=== PATIENT | male | born 1960 | race Caucasian/White ===

== ENCOUNTER 2017-12-28 09:01 | Emergency (ER) | payer SELFPAY ==
[~2017-12-28] VITALS: Ht 180.3 cm; Wt 95.0 kg
[~2017-12-28 09:01] MED LIST: AMLO10 PO; BACT800T5 PO; CLON.2 PO; DICL75 PO; FURO1TAB93 PO; PRIN20TA2 PO
[2017-12-28 09:06] VITALS: BP 160/89; PULSE 79; RESP 18; TEMP 98.4; O2SAT 94
[2017-12-28] MEDS ORDERED: DILT60TA PO (09:18)
[2017-12-28] MEDS ORDERED: HYDR-3801 PO (09:18)
[2017-12-28] MEDS ORDERED: ASPI81CH6 CHEW (09:18)
[2017-12-28] MEDS ORDERED: METF1000 PO (09:18)
[2017-12-28] MEDS ORDERED: LISI-515 PO (09:18)
[2017-12-28] MEDS ORDERED: HYDR25TA5 PO (09:18)
[2017-12-28] MEDS ORDERED: CARV25TA (09:18)
[2017-12-28] MEDS ORDERED: SIMV40TA PO (09:18)
[2017-12-28] MEDS ORDERED: LEVO50TA4 PO (09:18)
[2017-12-28] MEDS ORDERED: ALLO100T PO (09:18)
[2017-12-28] MEDS ORDERED: GLIP10TA6 PO (09:18)
[2017-12-28 09:26] VITALS: BP 157/76; PULSE 75; RESP 20; O2SAT 93
[2017-12-28 09:32] LABS: AUTOMATED NEUTROPHIL # 5.1 TH/MM3 (1.8-7.7); BASOPHIL % 0.6 % (0.0-2.0); EOSINOPHIL # 0.2 TH/MM3 (0-0.4); EOSINOPHIL % 3.3 % (0.0-4.0); HEMATOCRIT 41.3 % (39.0-51.0); HEMOGLOBIN 13.6 GM/DL (13.0-17.0); LYMPH % 17.5 % (9.0-44.0); LYMPHOCYTE # 1.2 TH/MM3 (1.0-4.8); MEAN CELL VOLUME 82.2 FL (80.0-100.0); MEAN CORPUSCULAR HGB CONC 32.8 % (32.0-36.0); MEAN PLATELET VOLUME 9.7 FL (7.0-11.0); MONO % 6.5 % (0.0-8.0); MONOCYTE # 0.4 TH/MM3 (0-0.9); NEUT % 72.1 % (16.0-70.0); PLATELET COUNT 154 TH/MM3 (150-450); RED BLOOD COUNT 5.02 MIL/MM3 (4.50-5.90); RED CELL DISTRIBUTION WIDTH 14.8 % (11.6-17.2); WHITE BLOOD COUNT 6.9 TH/MM3 (4.0-11.0)
--- NOTE | 2017-12-28 10:14 | RADRPT ---
EXAM DATE/TIME: 12/28/2017 09:45 [place] COMPARISON: No previous studies available for comparison. INDICATIONS : Short of breath MEDICAL HISTORY : Congestive heart failure. SURGICAL HISTORY : None. ENCOUNTER: Initial ACUITY: 1 week PAIN SCORE: 0/10 LOCATION: Bilateral chest FINDINGS: The heart size is enlarged. Cephalization of vasculature. Diffuse interstitial thickening concerning for congestive heart failure and pulmonary edema. Osseous structures are intact. CONCLUSION: Radiographic findings concerning for congestive heart failure and pulmonary edema.. Geneva Beard MD on December 28, 2017 at 10:11 Board Certified Radiologist. This report was verified electronically.
--- NOTE | 2017-12-28 10:18 | PD ---
HPI Chief Complaint: Respiratory Symptoms Time Seen by Provider: 10:09 Travel History International Travel<30 days: No Contact w/Intl Traveler<30days: No Traveled to known affect area: No History of Present Illness HPI 57-year-old male complains of shortness of breath. Patient states that he had progressive shortness of breath for the past week. Patient also complains of dyspnea on exertion. Patient denies any headache. Patient denies any chest pain. Patient denies any coughing congestion fever chills. Patient denies abdominal pain. Patient denies any focal weakness or numbness of extremity. Patient has history of CHF. Patient had echocardiogram done in 2008 which showed ejection fraction between 40 and 50%. Patient history been taking HCTZ 25 mg daily. Patient quit smoking many years ago. Patient denies any history of asthma or COPD. Patient has been taking Lasix 20 mg once in a while, as needed. Last Lasix was 3 days ago. Patient was on potassium in the past but not recently. PFSH Past Medical History Arthritis: No Asthma: No Blood Disorders: No Heart Rhythm Problems: No Cancer: No Cardiovascular Problems: Yes High Cholesterol: Yes Chest Pain: No Congestive Heart Failure: Yes COPD: No Cerebrovascular Accident: No Coronary Artery Disease: Yes Diabetes: Yes Patient Takes Glucophage: Yes Diminished Hearing: No Endocrine: No Gastrointestinal Disorders: Yes GERD: No Genitourinary: No Headaches: No Hepatitis: No Hiatal Hernia: No Hypertension: Yes Immune Disorder: No Kidney Stones: No Musculoskeletal: No Neurologic: No Psychiatric: No Reproductive: No Respiratory: Yes Immunizations Current: Yes Migraines: No Myocardial Infarction: No Renal Failure: No Seizures: No Thyroid Disease: Yes Ulcer: No Influenza Vaccination: No ?: Not Past Surgical History Abdominal Surgery: Yes (APPENDECTOMY) Appendectomy: Yes Arteriovenous Shunt: No Cardiac Surgery: No Cholecystectomy: No Ear Surgery: No Endocrine Surgery: No Eye Surgery: No Genitourinary Surgery: No Gynecologic Surgery: No Joint Replacement: No Oral Surgery: No Pacemaker: No Thoracic Surgery: No Other Surgery: Yes Social History Alcohol Use: No Tobacco Use: No Substance Use: No Allergies-Medications (Allergen,Severity, Reaction): Coded Allergies: *MDRO Multi-Drug Resistant Organism (Verified Adverse Reaction, Unknown, ) 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 Reported Meds & Prescriptions Reported Meds & Active Scripts Active Reported Furosemide 20 Mg Tab 20 Mg PO DAILY PRN Simvastatin 40 Mg Tab 40 Mg PO HS Aspirin Low Dose (Aspirin) 81 Mg Chew 81 Mg CHEW DAILY Glipizide 10 Mg Tab 10 Mg PO DAILY Take 30 minutes before a meal Allopurinol 100 Mg Tab 100 Mg PO DAILY Diltiazem (Diltiazem HCl) 60 Mg Tab 60 Mg PO DAILY Hydrochlorothiazide 25 Mg Tab 25 Mg PO DAILY Levothyroxine (Levothyroxine Sodium) 50 Mcg Tab 50 Mcg PO DAILY Lisinopril 20 Mg Tab 20 Mg PO DAILY Hydralazine (Hydralazine HCl) 100 Mg Tab 50 Mg PO BID Take with meals Carvedilol 25 Mg Tab 25 Mg BID Metformin (Metformin HCl) 1,000 Mg Tab 1,000 Mg PO BID With a meal Review of Systems General / Constitutional: No: Fever Eyes: No: Visual changes HENT: No: Headaches Cardiovascular: No: Chest Pain or Discomfort Respiratory: Positive: Shortness of Breath Gastrointestinal: No: Abdominal Pain Genitourinary: No: Dysuria Musculoskeletal: No: Pain Skin: No Rash Neurologic: No: Weakness Psychiatric: No: Depression Endocrine: No: Polydipsia Hematologic/Lymphatic: No: Easy Bruising Physical Exam Narrative GENERAL: Well-nourished, well-developed patient. SKIN: Focused skin assessment warm/dry. HEAD: Normocephalic. EYES: No scleral icterus. No injection or drainage. NECK: Supple, trachea midline. No JVD or lymphadenopathy. CARDIOVASCULAR: Regular rate and rhythm without murmurs, gallops, or rubs. RESPIRATORY: Breath sounds equal bilaterally. No accessory muscle use. Patient has few rhonchi at the right base. GASTROINTESTINAL: Abdomen soft, non-tender, nondistended. MUSCULOSKELETAL: No cyanosis, or edema. BACK: Nontender without obvious deformity. No CVA tenderness. Neurologic exam normal. Data Data Last Documented VS Vital Signs Date Time Temp Pulse Resp B/P (MAP) Pulse Ox O2 Delivery O2 Flow Rate FiO2 12/28/17 12:25 76 18 166/79 (108) 95 12/28/17 10:21 Room Air 12/28/17 09:06 98.4 Orders Orders Complete Blood Count With Diff (12/28/17 09:21) Basic Metabolic Panel (Bmp) (12/28/17 09:21) Chest, Pa & Lat (12/28/17 09:21) Iv Access Insert/Monitor (12/28/17 09:21) Ecg Monitoring (12/28/17:21) Oxygen Administration (12/28/17:21) Oximetry (12/28/17:21) Electrocardiogram (12/28/17:21) B-Type Natriuretic Peptide (12/28/17:21) I-Stat Profile (12/28/17 09:15) Potassium Chloride (Kcl) (12/28/17 11:00) Potassium Chlor 10 Meq Premix (Kcl 10 Me (12/28/17 11:00) Ed Discharge Order (12/28/17 12:23) Labs Laboratory Tests Test 12/28/17:15 White Blood Count 6.9 TH/MM3 Red Blood Count 5.02 MIL/MM3 Hemoglobin 13.6 GM/DL Bedside Hemoglobin G/DL Hematocrit 41.3 % Bedside Hematocrit % Mean Corpuscular Volume 82.2 FL Mean Corpuscular Hemoglobin 27.0 PG Mean Corpuscular Hemoglobin Concent 32.8 % Red Cell Distribution Width 14.8 % Platelet Count 154 TH/MM3 Mean Platelet Volume 9.7 FL Neutrophils (%) (Auto) 72.1 % Lymphocytes (%) (Auto) 17.5 % Monocytes (%) (Auto) 6.5 % Eosinophils (%) (Auto) 3.3 % Basophils (%) (Auto) 0.6 % Neutrophils # (Auto) 5.1 TH/MM3 Lymphocytes # (Auto) 1.2 TH/MM3 Monocytes # (Auto) 0.4 TH/MM3 Eosinophils # (Auto) 0.2 TH/MM3 Basophils # (Auto) 0.0 TH/MM3 CBC Comment DIFF FINAL Differential Comment Bedside Sodium 144 MMOL/L Blood Urea Nitrogen 18 MG/DL Creatinine 1.00 MG/DL Random Glucose 112 MG/DL Calcium Level 8.4 MG/DL Sodium Level 142 MEQ/L Potassium Level 3.2 MEQ/L Chloride Level 106 MEQ/L Carbon Dioxide Level 29.0 MEQ/L Bedside Potassium 3.2 MMOL/L Bedside Chloride 102 MMOL/L Anion Gap 7 MEQ/L Bedside Blood Urea Nitrogen 19 MG/DL Bedside Creatinine 1.0 MG/DL Estimat Glomerular Filtration Rate 77 ML/MIN Bedside Glucose 115 MG/DL B-Type Natriuretic Peptide 525 PG/ML MDM Medical Decision Making Medical Screen Exam Complete: Yes Emergency Medical Condition: Yes Interpretation(s) Last Impressions Chest X-Ray 12/28/17 0921 Signed Impressions: Service Date/Time: Thursday, December 28, 2017 09:45 - CONCLUSION: Radiographic findings concerning for congestive heart failure and pulmonary edema.. Geneva Beard MD 10:56 AM. CBC within normal limit. Potassium 3.2. BNP 525. Differential Diagnosis Differential diagnosis including acute exacerbation CHF, reactive airway disease , bronchitis, pneumonia, PE, pneumothorax. Narrative Course 57-year-old male with shortness of breath and dyspnea on exertion. History of CHF. KCl 10 mEq IV given now. KCl 40 was 100 given now. Advised patient to take Lasix 20 mg afternoon and continue that daily. Follow-up with local physician. Diagnosis Primary Impression: Acute exacerbation of CHF (congestive heart failure) Qualified Codes: I50.9 - Heart failure, unspecified Additional Impression: Hypokalemia Patient Instructions: General Instructions Additional Instructions: Take Lasix daily as directed. Potassium as directed. Follow-up with personal physician in one week for potassium level checked. Return if worse. Med/Other Pt SpecificInfo: Prescription(s) given Scripts Potassium Chloride ER (Potassium Chloride ER) 10 Meq Cap 10 MEQ PO DAILY for Electrolyte Replacement, #14 CAP 0 Refills Prov: Emeka Velez MD 12/28/17 Disposition: 01 DISCHARGE HOME Condition: Stable Emeka Velez MD Dec 28, 2017 10:18
[2017-12-28 10:19] LABS: CHLORIDE 106 MEQ/L (98-107); SODIUM (NA) 142 MEQ/L (136-145)
[2017-12-28 10:21] VITALS: BP 168/74; PULSE 76; RESP 18; O2SAT 95
[2017-12-28] MEDS ORDERED: FURO20TA PO (10:22)
[2017-12-28 10:23] LABS: CALCIUM 8.4 MG/DL (8.5-10.1)
[2017-12-28 10:24] LABS: BLOOD UREA NITROGEN 18 MG/DL (7-18); GLUCOSE,RANDOM 112 MG/DL (74-106)
[2017-12-28 10:27] LABS: GLOMERULAR FILTRATION RATE 77 ML/MIN (>89)
[2017-12-28] MEDS ORDERED: POTASSIUM CHLOR 10 MEQ PREMIX 100 ML IV ONE (11:00)
[2017-12-28] MEDS ORDERED: POTASSIUM CHLORIDE 20 MEQ CONTROLLED RELEASE TAB PO ONE (11:00)
[2017-12-28 12:25] VITALS: BP 166/79
[2017-12-28] MEDS ORDERED: POTA10CA PO (12:28)
--- NOTE | 2017-12-29 00:50 | EKG ---
Date Performed: 12/28/2017 Time Performed: 09:29:09 PTAGE: 57 years EKG: Sinus rhythm POSSIBLE LEFT ATRIAL ENLARGEMENT LEFT VENTRICULAR HYPERTROPHY AND ST-T CHANGE ST/T WAVE CHANGES MAY BE DUE TO LVH OR ISCHEMIA ABNORMAL ECG INTERPRETATION BASED ON A DEFAULT AGE OF 40 YEARS Since the pr ior tracing, there has been no significant change DOCTOR: Tim Harvey Interpretating Date/Time 12/29/2017 00:49:37
== END 2017-12-28 12:33 | disposition home or self-care (01) ==
LOC: PHED 09:01
DX: I50.9 Heart failure, unspecified (principal); E87.6 Hypokalemia; E78.00 Pure hypercholesterolemia, unspecified; I25.10 Atherosclerotic heart disease of native coronary artery without angina pectoris; E11.9 Type 2 diabetes mellitus without complications; I10 Essential (primary) hypertension
CPT/HCPCS: 71046; 80048; 83880; 85025; 93005; 96365; 99284; J3480

== ENCOUNTER 2018-07-25 08:00 | Inpatient (IN) ==
[2018-07-25] MEDS ORDERED: Morphine Sulfate Inj 2 MG/ML Vial IV.PUSH ONE (08:30)
[2018-07-25 08:56] LABS: Baso % (Auto) 0.6 % (0.0-2.0); Eos # (Auto) 0.2 th/mm3 (0.0-0.4); Eos % (Auto) 2.8 % (0.0-4.0); Hematocrit 39.6 % (39.0-51.0); Hemoglobin 13.2 gm/dL (13.0-17.0); Lymph # (Auto) 1.3 th/mm3 (1.0-4.8); Lymph % (Auto) 16.7 % (9.0-44.0); Mean Corpuscular HGB Conc 33.4 % (32.0-36.0); Mean Corpuscular Hemoglobin 29.2 pg (27.0-34.0); Mean Corpuscular Volume 87.4 fL (80.0-100.0); Mean Platelet Volume 9.2 fL (7.0-11.0); Mono # (Auto) 0.4 th/mm3 (0.0-0.9); Mono % (Auto) 5.3 % (0.0-8.0); Neut # (Auto) 5.8 th/mm3 (1.8-7.7); Neut % (Auto) 74.6 % (16.0-70.0); Platelet Count 248 th/mm3 (150-450); Red Blood Count 4.53 mil/mm3 (4.50-5.90); Red Cell Distribution Width 12.4 % (11.6-17.2); White Blood Count 7.8 th/mm3 (4.0-11.0)
--- NOTE | 2018-07-25 09:03 | ED ---
HPI General Chief complaint: Extremity Injury, Lower Stated complaint: Lt lower extremity/red/swollen Source: patient Mode of arrival: ambulatory Limitations: no limitations History of Present Illness HPI narrative: Patient is a 57-year-old male comes in complaining of pain and swelling to his left leg. He was here about 10 days ago and was diagnosed with cellulitis. He was discharged with prescription for clindamycin. He says he is just about finished with the antibiotic, but his symptoms have not improved. He says the swelling has increased, and he thinks it needs to be drained. He denies fever chills. He is on Coumadin. He does have history of diabetes. He has not been taking anything for pain. Severity is mild to moderate. Related Data Home Medications Medication Instructions Recorded Confirmed allopurinol [Zyloprim] 100 mg PO DAILY 05/29/18 07/25/18 carvedilol [Coreg] 25 mg PO BID 05/29/18 07/25/18 glipizide 10 mg PO DAILY 05/29/18 07/25/18 hydralazine 50 mg PO DAILY 05/29/18 07/25/18 levothyroxine [Synthroid] 75 mcg PO DAILY 05/29/18 07/25/18 metformin 1,000 mg PO DAILY 05/29/18 07/25/18 simvastatin 40 mg PO HS 05/29/18 07/25/18 warfarin 5 mg PO DAILY 07/13/18 07/25/18 Previous Rx's Medication Instructions Recorded lactobacillus combo no.11 1 cap PO DAILY #10 cap 07/13/18 [Probiotic] Allergies Allergy/AdvReac Type Severity Reaction Status Date / Time acetaminophen Allergy Hives Verified 07/25/18 08:11 [From Coricidin] chlorpheniramine Allergy Hives Verified 07/25/18 08:11 [From Coricidin] phenylpropanolamine Allergy Hives Verified 07/25/18 08:11 [From Coricidin] *MDRO Multi-Drug Resistant AdvReac Unknown Rash, Uncoded 07/25/18 08:11 Organism Generalized Review of Systems ROS: all other systems reviewed are negative Constitutional Denies chills and Denies fever(s) ENT Denies dizziness Cardiovascular Denies chest pain Respiratory Denies dyspnea Gastrointestinal Denies nausea and Denies vomiting Musculoskeletal Comments: leg pain Integumentary/Breasts Reports lesions and Reports sores Neurologic Denies focal weakness and Denies numbness PMFSH History History Provided By: Patient Medical History Medical History Atrial fibrillation (Acute) CHF (congestive heart failure) (Acute) Chest pain (Acute) Diabetes (Acute) GERD (gastroesophageal reflux disease) (Acute) High cholesterol (Acute) Hypertension (Acute) Social History Social History Substance History: No History of Abuse Second Hand Smoke Exposure: No Smoking Status: Never smoker How Often Do You Have a Drink Containing Alcohol: Never Recent Travel in [facility] within the Last 8 Weeks: No Recent Out of Country Travel within the Last 8 Weeks: No Exam Narrative Exam Narrative: GENERAL: Awake and alert, in no acute distress. SKIN: Left lower extremity is erythematous and warm to the touch. There is ecchymosis of the toes. Large area of fluctuance to the lateral side of the left lower extremity. HEAD: Atraumatic. Normocephalic. EYES: Pupils equal and round. No scleral icterus. No injection or drainage. ENT: Mucous membranes pink and moist. NECK: Trachea midline. No JVD. CARDIOVASCULAR: Regular rate and rhythm. No murmur appreciated. RESPIRATORY: No accessory muscle use. Clear to auscultation. Breath sounds equal bilaterally. GASTROINTESTINAL: Abdomen soft, non-tender, nondistended. MUSCULOSKELETAL: No obvious deformities. No clubbing. No cyanosis. Edema of the left lower extremity. Pedal pulses intact. NEUROLOGICAL: Awake and alert. No obvious cranial nerve deficits. Motor grossly within normal limits. Normal speech. PSYCHIATRIC: Appropriate mood and affect; insight and judgment normal. Course Initial Documented Vital Signs Temperature 97.8 F 07/25/18 08:09 Pulse Rate 75 07/25/18 08:09 Respiratory Rate 16 07/25/18 08:09 Blood Pressure 155/84 H 07/25/18 08:09 Pulse Oximetry 95 07/25/18 08:09 Last Documented Vital Signs Temperature 97.8 F 07/25/18 08:09 Pulse Rate 80 07/25/18 10:20 Respiratory Rate 16 07/25/18 10:20 Blood Pressure 108/72 07/25/18 10:20 Pulse Oximetry 97 07/25/18 10:20 Medical Decision Making MDM Narrative Medical decision making narrative: Is a 57-year-old male who comes in complaining of pain and swelling to his left leg. Exam shows large area of erythema and fluctuance. IV established, labs sent. Labs show no acute abnormalities. CT of the leg performed shows a large abscess that goes deep into the muscle. Patient given vancomycin. He will require surgical drainage of the abscess. Admitted for further management. Medical Screen Exam Complete: Yes Emergency Medical Condition: Yes Differential Diagnosis Differential Diagnosis: Cellulitis versus abscess versus hematoma Medical Records Medical records reviewed: Yes I reviewed the patient's medical records. Lab Data Lab results reviewed: Yes I reviewed the patient's lab results. Result diagrams: 07/25/18 08:48 07/25/18 08:48 Lab Results 07/25/18 07/25/18 07/25/18 Range/Units 08:48 08:48 08:48 CBC w Diff Auto diff final WBC 7.8 (4.0-11.0) th/mm3 RBC 4.53 (4.50-5.90) mil/mm3 Hgb 13.2 (13.0-17.0) gm/dL Hct 39.6 (39.0-51.0) % MCV 87.4 (80.0-100.0) fL MCH 29.2 (27.0-34.0) pg MCHC 33.4 (32.0-36.0) % RDW 12.4 (11.6-17.2) % Plt Count 248 D (150-450) th/mm3 MPV 9.2 (7.0-11.0) fL Neut % (Auto) 74.6 H (16.0-70.0) % Lymph % (Auto) 16.7 (9.0-44.0) % [place] % (Auto) 5.3 (0.0-8.0) % Eos % (Auto) 2.8 (0.0-4.0) % Baso % (Auto) 0.6 (0.0-2.0) % Neut # (Auto) 5.8 (1.8-7.7) th/mm3 Lymph # (Auto) 1.3 (1.0-4.8) th/mm3 [place] # (Auto) 0.4 (0.0-0.9) th/mm3 Eos # (Auto) 0.2 (0.0-0.4) th/mm3 Baso # (Auto) 0.0 (0.0-0.2) th/mm3 WBC Differential . Differential Comment . PT 20.9 H (9.8-11.6) sec INR 2.1 Ratio APTT 35.7 H (24.3-30.1) sec Sodium 141 (136-145) meq/L Potassium 3.4 L (3.5-5.1) meq/L Chloride 102 (98-107) meq/L Carbon Dioxide 29.9 (21.0-32.0) meq/L Anion Gap 9 (5-15) meq/L BUN 28 H (7-18) mg/dL Creatinine 1.60 H (0.60-1.30) mg/dL Estimated GFR 45 L (>89) mL/min Random Glucose 106 (74-106) mg/dL Calcium 8.6 (8.5-10.1) mg/dL Total Bilirubin 0.4 (0.2-1.0) mg/dL AST 20 (15-37) U/L ALT 33 (12-78) U/L Alkaline Phosphatase 80 (45-117) U/L Total Protein 8.0 (6.4-8.2) g/dL Albumin 3.7 (3.4-5.0) g/dL Imaging Data Radiologist's impression: Lower Extremity CT 07/25/18 08:30 CONCLUSION: 1. Soft tissue fluid collection presumed abscess with some deep involvement lateral side of the leg just above the ankle. 2. Ultrasound could be used to aspirate. Discharge Plan Discharge Disposition Patient Disposition: 30 Still Patient Discharge Condition Condition: Stable Discharge Details Diagnosis: Cellulitis and abscess of left lower extremity Physicians Team ED Provider: Catalina Yanes Primary Care Provider: Noah Mercado Rxs /Orders / Referrals /Forms Prescriptions: No Action warfarin 5 mg Tablet 5 mg PO DAILY RF: 0 lactobacillus combo no.11 [Probiotic] 15 billion cell capsule, sprinkle 1 cap PO DAILY Qty: 10 RF: 0 carvedilol [Coreg] 25 mg Tablet 25 mg PO BID RF: 0 glipizide 10 mg Tablet 10 mg PO DAILY RF: 0 allopurinol [Zyloprim] 100 mg Tablet 100 mg PO DAILY RF: 0 simvastatin 40 mg Tablet 40 mg PO HS RF: 0 levothyroxine [Synthroid] 50 mcg Tablet 75 mcg PO DAILY RF: 0 metformin 1,000 mg Tablet 1,000 mg PO DAILY RF: 0 hydralazine 50 mg Tablet 50 mg PO DAILY RF: 0 Discharge Interventions Interventions: Vital Signs Last Done: 07/25/18 10:20 Status ED Status: In Room
[2018-07-25 09:08] LABS: Chloride 102 meq/L (98-107); Potassium 3.4 meq/L (3.5-5.1); Sodium 141 meq/L (136-145)
[2018-07-25 09:11] LABS: Albumin 3.7 g/dL (3.4-5.0); Anion Gap 9 meq/L (5-15); Calcium 8.6 mg/dL (8.5-10.1); Carbon Dioxide 29.9 meq/L (21.0-32.0); Glucose,Random 106 mg/dL (74-106)
[2018-07-25 09:12] LABS: Activated Partial Thrombo Time 35.7 sec (24.3-30.1); Blood Urea Nitrogen 28 mg/dL (7-18); INR 2.1 Ratio; Prothrombin Time 20.9 sec (9.8-11.6)
[2018-07-25 09:14] LABS: Alanine Aminotransferase 33 U/L (12-78); Aspartate Aminotransferase 20 U/L (15-37)
[2018-07-25 09:15] LABS: Glomerular Filtration Rate 45 mL/min (>89)
[2018-07-25 09:17] LABS: Alkaline Phosphatase 80 U/L (45-117)
--- NOTE | 2018-07-25 10:52 | CT ---
EXAM DATE: 07/25/2018 10:08 AM EDT AGE/SEX: 57 years / Male INDICATIONS: Left lateral distal low leg pain with swelling and redness x 2 weeks. CLINICAL DATA: This is the patient's initial encounter. Patient reports that signs and symptoms have been present for 2 weeks and indicates a pain score of 7/10. MEDICAL/SURGICAL HISTORY: Renal failure, acute. Congestive heart failure. Gastroesophageal reflux disease. Cellulitis. Diabetes. Hypertension. Appendectomy. RADIATION DOSE: 9.8 CTDI (mGy) COMPARISON: No prior exams available for comparison. TECHNIQUE: Multiple contiguous axial images were acquired using a multirow detector CT scanner after the intravenous administration of 65 ml Omnipaque 350 (iohexol) nonionic water-soluble contrast as a single exam dose. Multiplanar reconstruction was performed in the sagittal and coronal planes. Usin g automated exposure control and adjustment of the mA and/or kV according to patient size, radiation dose was kept as low as reasonably achievable to obtain optimal diagnostic quality images. DICOM for mat image data is available electronically for review and comparison. FINDINGS: Generalized soft tissue swelling subcutis tissues with a defined fluid collection involving subcutane ous tissues as well as the deep muscles lateral side of the leg measuring 3.8 cm x 7 cm. Regarding this process is subcutaneous. This is far removed from a major neurovascular structures. This can easily be aspirated under ultrasound guidance. CONCLUSION: 1. Soft tissue fluid collection presumed abscess with some deep involvement lateral side of the leg just above the ankle. 2. Ultrasound could be used to aspirate. Electronically signed by: Marlon Cantu MD 07/25/2018 10:50 AM EDT
[2018-07-25] MEDS ORDERED: Vancomycin Inj 1 GM/200 ML PIGGYBACK IV.SIG ONE (10:58)
[2018-07-25] MEDS ORDERED: Dextrose 50% in Water 50 ML Vial IV.PUSH PRN (11:16)
[2018-07-25] MEDS: Sod Chloride 0.9% Inj 1,000 ML IV.CONT SCH ×2 (11:23→22:20)
[2018-07-25] MEDS ORDERED: Vancomycin Inj 1,000 MG in Sodium Chlor 0.9% Inj 250 ML IV.SIG ONE (12:00)
[2018-07-25] MEDS ORDERED: Vancomycin Consult Pharmacy OTHER PRN (13:00)
--- NOTE | 2018-07-25 13:08 | P.HPIM ---
History of Present Illness Primary Care Physician: Noah Mercado MD Chief Complaint: Leg pain History of Present Illness: The patient is a 57 year old male with a recent diagnosis of A fib on Coumadin who is presenting to the hospital with a worsening leg infection. The patient says that two weeks ago he came to the ED for swelling and pain in his left leg. 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 The patient was prescribed clindamycin and sent home. He said that gradually the pain in the LLE went from a 9/10 to a 5/10. He was still concerned about the amount of swelling so he thought he would come to the ED and have it checked out again. The patient denies any fever. He has been tolerating a diet. He has been sleeping well. He is able to bear weight on the LLE. He denies seeing any drainage from the extremity. Inpatient Certification: I certify that the inpatient services were ordered in accordance with Medicare regulations governing the order. This includes certification that hospital inpatient services are reasonable and necessary and in the case of services not specified as inpatient-only under 42 CFR 419.22(n), that they are appropriately provided as inpatient services in accordance to with the 2-midnight benchmark under 43 CFR 412.3(e) Estimated Total Length of Stay (Days): 3 Plans for Post Hospital Care: Not yet determined Review of Systems All other systems reviewed negative except as stated in HPI PMFSH - History History Provided By: Patient - Medical History Medical History: Medical History (Last Reviewed 07/25/18 @ 13:09 by Tommy Forde DO) Atrial fibrillation CHF (congestive heart failure) Chest pain Diabetes GERD (gastroesophageal reflux disease) High cholesterol Hypertension - Surgical History Surgical History: Surgical History (Last Updated 07/25/18 @ 13:09 by Tommy Forde DO) History of appendectomy - Family History Family History: Family History (Last Updated 07/25/18 @ 13:09 by Tommy Forde DO) Other Breast cancer Lymphoma - Tobacco History Second Hand Smoke Exposure: No Smoking Status: Never smoker - Alcohol History How Often Do You Have a Drink Containing Alcohol: Never - Substance Use History Substance History: No History of Abuse - Travel History Recent Travel in the [place] Within the Last 8 Weeks: No Recent Travel Out of the Country Within the Last 8 Weeks: No - Immunization History Tetanus Immunization: <5 Years Hx Influenza Vaccine This Season: No Medications and Allergies Active Medications: Active Medications Allopurinol (Zyloprim) 100 mg PO DAILY [facility] Carvedilol (Coreg) 25 mg PO BID [facility] Dextrose (D50w Vial) 50 ml IV.PUSH UNSCH PRN PRN Reason: PER HYPOGLYCEMIA PROTOCOL Glucagon (Glucagon Inj) 1 mg OTHER PRN PRN PRN Reason: for Hypoglycemia Protocol Hydralazine HCl (Apresoline) 50 mg PO DAILY [facility] Piperacillin/Tazobactam/Dextrose (Zosyn 4.5 Gm Premix) 4.5 gm in 100 mls @ 200 mls/hr IV.SIG Q6H [facility] Sodium Chloride (Ns Inj) 1,000 mls @ 100 mls/hr IV.CONT .Q10H [facility] Stop: 07/26/18 07:29 Last Admin: 07/25/18 11:23 Dose: 100 mls/hr Vancomycin HCl 1,500 mg/ (Sodium Chloride) 515 mls @ 250 mls/hr IV.SIG Q24H [facility] Insulin Aspart (Novolog Insulin Correctional Sugar Inj) 0 unit SQ ACHS [facility]; Protocol Levothyroxine Sodium (Synthroid) 75 mcg PO DAILY@0600 [facility] Miscellaneous Information ([facility] Ordered Lab Info) 0 each OTHER ONCE ONE Stop: 07/29/18 05:46 Oxycodone HCl (Roxicodone) 5 mg PO Q4H PRN PRN Reason: pain 3-10 Pharmacy Profile Note (Vancomycin Consult Pharmacy) 1 each OTHER UNSCH PRN PRN Reason: Pharmacy to dose Pravastatin Sodium (Pravachol) 80 mg PO HS [facility] Senna/Docusate Sodium (Farheen-Colace) 1 tab PO BID [facility] Allergies Allergy/AdvReac Type Severity Reaction Status Date / Time acetaminophen Allergy Hives Verified 07/25/18 08:11 [From Coricidin] chlorpheniramine Allergy Hives Verified 07/25/18 08:11 [From Coricidin] phenylpropanolamine Allergy Hives Verified 07/25/18 08:11 [From Coricidin] *MDRO Multi-Drug Resistant AdvReac Unknown Rash, Uncoded 07/25/18 08:11 Organism Generalized Home Medications Medication Instructions Recorded Confirmed Type allopurinol [Zyloprim] 100 mg PO DAILY 05/29/18 07/25/18 History carvedilol [Coreg] 25 mg PO BID 05/29/18 07/25/18 History glipizide 10 mg PO DAILY 05/29/18 07/25/18 History hydralazine 50 mg PO DAILY 05/29/18 07/25/18 History levothyroxine [Synthroid] 75 mcg PO DAILY 05/29/18 07/25/18 History metformin 1,000 mg PO DAILY 05/29/18 07/25/18 History simvastatin 40 mg PO HS 05/29/18 07/25/18 History warfarin 5 mg PO DAILY 07/13/18 07/25/18 History Exam Vital signs: Vital Signs 07/25/18 08:09 07/25/18 09:05 07/25/18 09:24 Temperature 97.8 F Pulse Rate 75 74 Respiratory Rate 16 16 16 Blood Pressure 155/84 H 119/74 Pulse Oximetry 95 97 07/25/18 10:20 07/25/18 11:45 Temperature Pulse Rate 80 78 Respiratory Rate 16 16 Blood Pressure 108/72 138/83 Pulse Oximetry 97 96 Intake & Output 07/24/18 07/25/18 07/25/18 18:59 06:59 18:59 Output Total 900 / 900 Balance -900 / -900 Weight 93.3 kg Output: Urine 900 / 900 Narrative: GENERAL: Awake and alert, in no acute distress. SKIN: Left lower extremity is erythematous and warm to the touch. There is ecchymosis of the toes. Large area of fluctuance to the lateral side of the left lower extremity. HEAD: Atraumatic. Normocephalic. EYES: Pupils equal and round. No scleral icterus. No injection or drainage. ENT: Mucous membranes pink and moist. NECK: Trachea midline. No JVD. CARDIOVASCULAR: Regular rate and rhythm. No murmur appreciated. RESPIRATORY: No accessory muscle use. Clear to auscultation. Breath sounds equal bilaterally. GASTROINTESTINAL: Abdomen soft, non-tender, nondistended. MUSCULOSKELETAL: No clubbing. No cyanosis. Edema of the left lower extremity. Pedal pulses intact. NEUROLOGICAL: Awake and alert. No obvious cranial nerve deficits. Motor grossly within normal limits. Normal speech. PSYCHIATRIC: Appropriate mood and affect; insight and judgment normal. Results - Labs CBC & Chem 7: 07/25/18 08:48 07/25/18 08:48 Labs: Short CBC 09/07/18 Range/Units 08:48 WBC 7.8 (4.0-11.0) th/mm3 Hgb 13.2 (13.0-17.0) gm/dL Hct 39.6 (39.0-51.0) % Plt Count 248 D (150-450) th/mm3 BMP 07/25/18 08:48 Sodium 141 Potassium 3.4 L Chloride 102 Carbon Dioxide 29.9 BUN 28 H Creatinine 1.60 H Calcium 8.6 Liver Function 07/25/18 Range/Units 08:48 Total Bilirubin 0.4 (0.2-1.0) mg/dL AST 20 (15-37) U/L ALT 33 (12-78) U/L Alkaline Phosphatase 80 (45-117) U/L Albumin 3.7 (3.4-5.0) g/dL - Imaging Impressions Lower Extremity CT 07/25/18 08:30 CONCLUSION: 1. Soft tissue fluid collection presumed abscess with some deep involvement lateral side of the leg just above the ankle. 2. Ultrasound could be used to aspirate. Caprini VTE Risk Assessment Caprini VTE Risk Assessment: Moderate/High Risk (score >= 2) Caprini Risk Assessment Model: Point Value = 1 Point Value = 2 Point Value = 3 Point Value = 5 Age 41-60 Minor surgery BMI > 25 kg/m2 Swollen legs Varicose veins or History of unexplained or recurrent spontaneous Oral contraceptives or hormone replacement Sepsis (< 1 month) Serious lung disease, including pneumonia (< 1 month) Abnormal pulmonary function Acute myocardial infarction Congestive heart failure (< 1 month) History of inflammatory bowel disease Medical patient at bed rest Age 61-74 Arthroscopic surgery Major open surgery (> 45 min) Laparoscopic surgery (> 45 min) Malignancy Confined to bed (> 72 hours) Immobilizing plaster cast Central venous access Age >= 75 History of VTE Family history of VTE Factor V Leiden Prothrombin [id number] Lupus anticoagulant Anticardiolipin antibodies Elevated serum homocysteine Heparin-induced thrombocytopenia Other congenital or acquired thrombophilia Stroke (< 1 month) Elective arthroplasty Hip, pelvis, or leg fracture Acute spinal cord injury (< 1 month) Prophylaxis Regimen: Total Risk Factor Score Risk Level Prophylaxis Regimen 0-1 Low Early ambulation 2 Moderate Order ONE of the following: *Sequential Compression Device (SCD) *Heparin 5000 units SQ BID 3-4 Higher Order ONE of the following medications: *Heparin 5000 units SQ TID *Enoxaparin/Lovenox 40 mg SQ daily (WT < 150 kg, CrCl > 30 mL/min) *Enoxaparin/Lovenox 30 mg SQ daily (WT < 150 kg, CrCl > 10-29 mL/min) *Enoxaparin/Lovenox 30 mg SQ BID (WT < 150 kg, CrCl > 30 mL/min) AND/OR *Sequential Compression Device (SCD) 5 or more Highest Order ONE of the following medications: *Heparin 5000 units SQ TID (Preferred with Epidurals) *Enoxaparin/Lovenox 40 mg SQ daily (WT < 150 kg, CrCl > 30 mL/min) *Enoxaparin/Lovenox 30 mg SQ daily (WT < 150 kg, CrCl > 10-29 mL/min) *Enoxaparin/Lovenox 30 mg SQ BID (WT < 150 kg, CrCl > 30 mL/min) AND *Sequential Compression Device (SCD) Assessment and Plan - Plan Left lower extremity abscess The pt injured his LLE about two weeks ago. He failed a course of clindamycin. CT indicative of abscess. -general surgery consult requested. -keep pt NPO with IVFs. -pain control with a bowel regimen. -IV vancomycin and Zosyn. Acute renal failure/ Hypokalemia Likely prerenal. -IVFs and monitor. -avoid nephrotoxins. -KCl 20 meq po x 1. Afib Recently diagnosed. On Coumadin. INR 2.1 07/25. -hold Coumadin in anticipation of possible I&D. DM Chronic. -insulin sliding scale. PPx: INR over 2
--- NOTE | 2018-07-25 13:08 | P.PNIM ---
Subjective Interval history: The patient is a 57 year old male with a recent diagnosis of A fib on Coumadin who is presenting to the hospital with a worsening leg infection. The patient says that two weeks ago he came to the ED for swelling and pain in his left leg. 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 The patient was prescribed clindamycin and sent home. He said that gradually the pain in the LLE went from a 9/10 to a 5/10. He was still concerned about the amount of swelling so he thought he would come to the ED and have it checked out again. The patient denies any fever. He has been tolerating a diet. He has been sleeping well. He is able to bear weight on the LLE. He denies seeing any drainage from the extremity. Physical Exam Vital signs: Vital Signs 07/25/18 08:09 07/25/18 09:05 07/25/18 09:24 Temperature 97.8 F Pulse Rate 75 74 Respiratory Rate 16 16 16 Blood Pressure 155/84 H 119/74 Pulse Oximetry 95 97 07/25/18 10:20 07/25/18 11:45 Temperature Pulse Rate 80 78 Respiratory Rate 16 16 Blood Pressure 108/72 138/83 Pulse Oximetry 97 96 Intake & Output 07/24/18 07/25/18 07/25/18 18:59 06:59 18:59 Output Total 900 / 900 Balance -900 / -900 Weight 93.3 kg Output: Urine 900 / 900 Narrative: GENERAL: Awake and alert, in no acute distress. SKIN: Left lower extremity is erythematous and warm to the touch. There is ecchymosis of the toes. Large area of fluctuance to the lateral side of the left lower extremity. HEAD: Atraumatic. Normocephalic. EYES: Pupils equal and round. No scleral icterus. No injection or drainage. ENT: Mucous membranes pink and moist. NECK: Trachea midline. No JVD. CARDIOVASCULAR: Regular rate and rhythm. No murmur appreciated. RESPIRATORY: No accessory muscle use. Clear to auscultation. Breath sounds equal bilaterally. GASTROINTESTINAL: Abdomen soft, non-tender, nondistended. MUSCULOSKELETAL: No clubbing. No cyanosis. Edema of the left lower extremity. Pedal pulses intact. NEUROLOGICAL: Awake and alert. No obvious cranial nerve deficits. Motor grossly within normal limits. Normal speech. PSYCHIATRIC: Appropriate mood and affect; insight and judgment normal. Results - Labs CBC & Chem 7: 07/25/18 08:48 07/25/18 08:48 Laboratory Results - last 24 hr 07/25/18 07/25/18 07/25/18 08:48 08:48 08:48 CBC w Diff Auto diff final WBC 7.8 RBC 4.53 Hgb 13.2 Hct 39.6 MCV 87.4 MCH 29.2 MCHC 33.4 RDW 12.4 Plt Count 248 D MPV 9.2 Neut % (Auto) 74.6 H Lymph % (Auto) 16.7 [place] % (Auto) 5.3 Eos % (Auto) 2.8 Baso % (Auto) 0.6 Neut # (Auto) 5.8 Lymph # (Auto) 1.3 [place] # (Auto) 0.4 Eos # (Auto) 0.2 Baso # (Auto) 0.0 WBC Differential . Differential Comment . PT 20.9 H INR 2.1 APTT 35.7 H Sodium 141 Potassium 3.4 L Chloride 102 Carbon Dioxide 29.9 Anion Gap 9 BUN 28 H Creatinine 1.60 H Estimated GFR 45 L Random Glucose 106 Calcium 8.6 Total Bilirubin 0.4 AST 20 ALT 33 Alkaline Phosphatase 80 Total Protein 8.0 Albumin 3.7 - Imaging Impressions Lower Extremity CT 07/25/18 08:30 CONCLUSION: 1. Soft tissue fluid collection presumed abscess with some deep involvement lateral side of the leg just above the ankle. 2. Ultrasound could be used to aspirate. Assessment and Plan - Plan Left lower extremity abscess The pt injured his LLE about two weeks ago. He failed a course of clindamycin. CT indicative of abscess. -general surgery consult requested. -keep pt NPO with IVFs. -pain control with a bowel regimen. -IV vancomycin and Zosyn. DM Chronic. -insulin sliding scale. PPx: Avoid anticoagulation in anticipation of I&D
[2018-07-25] MEDS: Piperacil/Tazo 4.5 GM Premix 4.5 GM/100 ML BAG IV.SIG SCH ×2 (16:22→17:24)
[2018-07-25] MEDS: Insulin NovoLOG Aspart Correctional Sugar Inj SQ SCH ×3 (16:22→22:06)
[2018-07-25] MEDS: Senna/Docusate Sodium 8.6/50 MG Tablet PO SCH (22:15)
[2018-07-25] MEDS: Carvedilol 12.5 MG Tablet PO SCH (22:15)
[2018-07-26] MEDS: Piperacil/Tazo 4.5 GM Premix 4.5 GM/100 ML BAG IV.SIG SCH ×5 (00:05→17:02)
[2018-07-26] MEDS: Vancomycin Inj 1,500 MG in Sodium Chlor 0.9% Inj 500 ML IV.SIG SCH (05:40)
[2018-07-26] MEDS: Levothyroxine 50 MCG Tablet PO SCH (05:40)
[2018-07-26] MEDS: Carvedilol 12.5 MG Tablet PO SCH ×2 (08:08→20:50)
[2018-07-26] MEDS: Insulin NovoLOG Aspart Correctional Sugar Inj SQ SCH ×4 (08:08→22:09)
[2018-07-26] MEDS: Allopurinol 100 MG Tablet PO SCH (08:09)
[2018-07-26] MEDS: hydrALAZINE 50 MG Tablet PO SCH (08:09)
[2018-07-26] MEDS: Senna/Docusate Sodium 8.6/50 MG Tablet PO SCH ×2 (08:09→20:51)
[2018-07-26] MEDS ORDERED: fentaNYL Citrate Inj 100 MCG/2 ML Ampul ONE (08:28)
[2018-07-26 08:52] LABS: Baso % (Auto) 0.5 % (0.0-2.0); Eos # (Auto) 0.2 th/mm3 (0.0-0.4); Eos % (Auto) 3.3 % (0.0-4.0); Hematocrit 37.7 % (39.0-51.0); Hemoglobin 12.4 gm/dL (13.0-17.0); Lymph # (Auto) 1.3 th/mm3 (1.0-4.8); Lymph % (Auto) 16.9 % (9.0-44.0); Mean Corpuscular Hemoglobin 29.3 pg (27.0-34.0); Mean Platelet Volume 9.5 fL (7.0-11.0); Mono # (Auto) 0.5 th/mm3 (0.0-0.9); Mono % (Auto) 7.3 % (0.0-8.0); Neut # (Auto) 5.4 th/mm3 (1.8-7.7); Platelet Count 198 th/mm3 (150-450); Red Blood Count 4.23 mil/mm3 (4.50-5.90); Red Cell Distribution Width 12.3 % (11.6-17.2); White Blood Count 7.4 th/mm3 (4.0-11.0)
[2018-07-26] MEDS ORDERED: Bupivacaine PF 0.25% Inj 30 ML Vial ONE (08:53)
[2018-07-26 09:11] LABS: Chloride 107 meq/L (98-107); Potassium 3.5 meq/L (3.5-5.1); Sodium 145 meq/L (136-145)
[2018-07-26 09:15] LABS: Calcium 8.4 mg/dL (8.5-10.1)
[2018-07-26 09:16] LABS: Albumin 3.4 g/dL (3.4-5.0); Anion Gap 7 meq/L (5-15); Blood Urea Nitrogen 20 mg/dL (7-18); Carbon Dioxide 30.8 meq/L (21.0-32.0); Glucose,Random 107 mg/dL (74-106)
[2018-07-26 09:19] LABS: Alanine Aminotransferase 29 U/L (12-78); Aspartate Aminotransferase 17 U/L (15-37); Glomerular Filtration Rate 52 mL/min (>89)
[2018-07-26 09:21] LABS: Total Protein 7.2 g/dL (6.4-8.2)
[2018-07-26 09:22] LABS: Alkaline Phosphatase 71 U/L (45-117)
[2018-07-26 09:31] LABS: Prothrombin Time 20.6 sec (9.8-11.6)
[2018-07-26] MEDS ORDERED: Ketorolac Inj 30 MG/ML (IVP) Vial IV.PUSH ONE (09:57)
[2018-07-26] MEDS ORDERED: Lidocaine PF 1% Inj 5 ML Syringe INFILTRATN ONE (09:57)
[2018-07-26] MEDS ORDERED: Neomycin/Polymyxin G.U. Irrigant 1 ML Ampul ONE (10:04)
--- NOTE | 2018-07-26 10:05 | P.CONPOD ---
History of Present Illness Service: Podiatry Consult date: 07/26/18 Primary Care Provider: Noah Mercado MD Family Provider: Noah Mercado MD Chief Complaint: Leg pain History of Present Illness: Patient relates two week history of worsening pain, redness, swelling left lower leg. 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 He understands what it is and what needs to be done. Review of Systems All other systems reviewed negative except as stated in HPI PMFSH - History History Provided By: Patient - Medical History Medical History: Medical History (Last Reviewed 07/25/18 @ 13:09 by Tommy Forde DO) Atrial fibrillation CHF (congestive heart failure) Chest pain Diabetes GERD (gastroesophageal reflux disease) High cholesterol Hypertension - Surgical History Surgical History: Surgical History (Last Updated 07/25/18 @ 13:09 by Tommy Forde DO) History of appendectomy - Family History Family History: Family History (Last Updated 07/25/18 @ 13:09 by Tommy Forde DO) Other Breast cancer Lymphoma - Tobacco History Second Hand Smoke Exposure: No Smoking Status: Never smoker - Alcohol History How Often Do You Have a Drink Containing Alcohol: Never - Substance Use History Substance History: No History of Abuse - Travel History Recent Travel in the [place] Within the Last 8 Weeks: No Recent Travel Out of the Country Within the Last 8 Weeks: No - Immunization History Tetanus Immunization: Unable to Assess Hx Influenza Vaccine This Season: Yes Medications and Allergies Active Medications: Active Medications Allopurinol (Zyloprim) 100 mg PO DAILY [facility] Last Admin: 07/26/18 08:09 Dose: 100 mg Carvedilol (Coreg) 25 mg PO BID [facility] Last Admin: 07/26/18 08:08 Dose: 25 mg Dextrose (D50w Vial) 50 ml IV.PUSH UNSCH PRN PRN Reason: PER HYPOGLYCEMIA PROTOCOL Glucagon (Glucagon Inj) 1 mg OTHER PRN PRN PRN Reason: for Hypoglycemia Protocol Hydralazine HCl (Apresoline) 50 mg PO DAILY [facility] Last Admin: 07/26/18 08:09 Dose: 50 mg Piperacillin/Tazobactam/Dextrose (Zosyn 4.5 Gm Premix) 4.5 gm in 100 mls @ 200 mls/hr IV.SIG Q6H [facility] Last Infusion: 07/26/18 08:07 Dose: Infused Vancomycin HCl 1,500 mg/ (Sodium Chloride) 515 mls @ 250 mls/hr IV.SIG Q24H [facility] Last Infusion: 07/26/18 08:07 Dose: Infused Lactated Ringer's (Lr 1000 Ml Inj) 1,000 mls @ 30 mls/hr IV.SIG .Q24H [facility] Stop: 07/27/18 00:44 Last Admin: 07/26/18 08:40 Dose: 30 mls/hr Insulin Aspart (Novolog Insulin Correctional Sugar Inj) 0 unit SQ ACHS [facility]; Protocol Last Admin: 07/26/18 08:08 Dose: Not Given Levothyroxine Sodium (Synthroid) 75 mcg PO DAILY@0600 [facility] Last Admin: 07/26/18 05:40 Dose: 75 mcg Miscellaneous Information ([facility] [place] [facility] Ordered Lab Info) 0 each OTHER ONCE ONE Stop: 07/29/18 05:46 Oxycodone HCl (Roxicodone) 5 mg PO Q4H PRN PRN Reason: pain 3-10 Pharmacy Profile Note (Vancomycin Consult Pharmacy) 1 each OTHER UNSCH PRN PRN Reason: Pharmacy to dose Pravastatin Sodium (Pravachol) 80 mg PO HS [facility] Last Admin: 07/25/18 22:14 Dose: 80 mg Senna/Docusate Sodium (Farheen-Colace) 1 tab PO BID [facility] Last Admin: 07/26/18 08:09 Dose: Not Given Allergies Allergy/AdvReac Type Severity Reaction Status Date / Time acetaminophen Allergy Hives Verified 07/25/18 08:11 [From Coricidin] chlorpheniramine Allergy Hives Verified 07/25/18 08:11 [From Coricidin] phenylpropanolamine Allergy Hives Verified 07/25/18 08:11 [From Coricidin] *MDRO Multi-Drug Resistant AdvReac Unknown Rash, Uncoded 07/25/18 08:11 Organism Generalized Home Medications Medication Instructions Recorded Confirmed Type allopurinol [Zyloprim] 100 mg PO DAILY 05/29/18 07/25/18 History carvedilol [Coreg] 25 mg PO BID 05/29/18 07/25/18 History glipizide 10 mg PO DAILY 05/29/18 07/25/18 History hydralazine 50 mg PO DAILY 05/29/18 07/25/18 History levothyroxine [Synthroid] 75 mcg PO DAILY 05/29/18 07/25/18 History metformin 1,000 mg PO DAILY 05/29/18 07/25/18 History simvastatin 40 mg PO HS 05/29/18 07/25/18 History warfarin 5 mg PO DAILY 07/13/18 07/25/18 History lisinopril 2.5 mg PO DAILY 07/26/18 07/26/18 History Physical Exam Vital signs: Vital Signs 07/25/18 10:20 07/25/18 11:45 07/25/18 16:00 Temperature 96.3 F L Pulse Rate 80 78 67 Respiratory Rate 16 16 18 Blood Pressure 108/72 138/83 153/89 H Pulse Oximetry 97 96 96 07/25/18 20:00 07/26/18 00:00 07/26/18 04:00 Temperature 97 F L 97.3 F L 96.3 F L Pulse Rate 62 80 76 Respiratory Rate 20 20 20 Blood Pressure 171/80 H 147/101 H 155/104 H Pulse Oximetry 95 93 L 94 L 07/26/18 08:00 07/26/18 08:47 Temperature 97.1 F L 97.1 F L Pulse Rate 65 65 Respiratory Rate 16 18 Blood Pressure 176/99 H 176/99 H Pulse Oximetry 96 96 Intake & Output 07/25/18 07/26/18 07/26/18 18:59 06:59 18:59 Intake Total 1350 / 1350 1320 / 1320 Output Total 900 / 900 750 / 750 Balance -900 / -900 600 / 600 1320 / 1320 Weight 93.3 kg 94.1 kg Intake: IV 1350 / 1350 1320 / 1320 NS Inj 1,000 ML @ 100 mls/hr IV 1000 / 1000 700 / 700 .CONT .Q10H [facility] Rx#:[id number] Zosyn 4.5 GM Premix 4.5 gm In 100 / 100 100 / 100 100 ml @ 200 mls/hr IV.SIG Q6H [facility] Rx#:[id number] Vancomycin Inj 1,000 MG In NS 250 / 250 Inj 250 ML @ 250 mls/hr IV.SIG ONCE ONE Rx#:[id number] Vancomycin Inj 1,500 MG In NS 520 / 520 Inj 500 ML @ 250 mls/hr IV.SIG Q24H [facility] Rx#:[id number] Oral 0 / 0 Output: Urine 900 / 900 750 / 750 Other: # Voids 1 Date of Last Bowel Movement 07/24/18 Weight On Admission 93 kg Narrative: Neurovascularly intact left lower extremity with redness, swelling, and pain just proximal to lateral ankle area with localized erythema only. Results - Labs CBC & Chem 7: 07/26/18 08:10 07/26/18 08:10 Laboratory Results - last 24 hr 07/25/18 07/25/18 07/26/18 17:24 22:05 05:43 CBC w Diff WBC RBC Hgb Hct MCV MCH MCHC RDW Plt Count MPV Neut % (Auto) Lymph % (Auto) [place] % (Auto) Eos % (Auto) Baso % (Auto) Neut # (Auto) Lymph # (Auto) [place] # (Auto) Eos # (Auto) Baso # (Auto) WBC Differential Differential Comment PT INR Sodium Potassium Chloride Carbon Dioxide Anion Gap BUN Creatinine Estimated GFR POC Glucose 99 84 110 Random Glucose Calcium Total Bilirubin AST ALT Alkaline Phosphatase Total Protein Albumin 07/26/18 07/26/18 07/26/18 08:10 08:10 08:10 CBC w Diff Auto diff final WBC 7.4 RBC 4.23 L Hgb 12.4 L Hct 37.7 L MCV 89.0 MCH 29.3 MCHC 33.0 RDW 12.3 Plt Count 198 MPV 9.5 Neut % (Auto) 72.0 H Lymph % (Auto) 16.9 [place] % (Auto) 7.3 Eos % (Auto) 3.3 Baso % (Auto) 0.5 Neut # (Auto) 5.4 Lymph # (Auto) 1.3 [place] # (Auto) 0.5 Eos # (Auto) 0.2 Baso # (Auto) 0.0 WBC Differential . Differential Comment . PT 20.6 H INR 2.0 Sodium 145 Potassium 3.5 Chloride 107 Carbon Dioxide 30.8 Anion Gap 7 BUN 20 H Creatinine 1.40 H Estimated GFR 52 L POC Glucose Random Glucose 107 H Calcium 8.4 L Total Bilirubin 0.4 AST 17 ALT 29 Alkaline Phosphatase 71 Total Protein 7.2 D Albumin 3.4 - Imaging Impressions Lower Extremity CT 07/25/18 08:30 CONCLUSION: 1. Soft tissue fluid collection presumed abscess with some deep involvement lateral side of the leg just above the ankle. 2. Ultrasound could be used to aspirate. Assessment and Plan - Assessment (1) Cellulitis and abscess of left lower extremity Code(s): L03.116 - Cellulitis of left lower limb; L02.416 - Cutaneous abscess of left lower limb Status: Acute Plan: To OR for I&D Left leg abscess NPO Discussed risks, benefits, complications and patient agreeable to surgery
--- NOTE | 2018-07-26 10:33 | P.BOP ---
- Preoperative Diagnosis (1) Hematoma of left lower extremity (2) Cellulitis of left leg (3) Cellulitis and abscess of left lower extremity - Postoperative Diagnosis (1) Cellulitis and abscess of left lower extremity (2) Cellulitis of left leg (3) Hematoma of left lower extremity Date of procedure: 07/26/18 Procedure: Incision and drainage left leg lateral ankle proximal to lateral malleolus with fluctuant subcutaneous area. Incision made 3cm in length and large cavernous area of hematoma and purulence expressed and irrigated thoroughly with 3L normal saline plus , followed by partial closure with 2-0 nylon and packing with 1/4'' iodoform gauze. Dressing with 4x4, abd x 2, cast padding, rupal. Dressing changes ordered per nursing daily while in-house. Culture taken prior to irrigation. Await cultures to Rx appropriate antibiotics for discharge recommended Weightbearing as tolerated left lower extremity Will need follow up at wound care center set up prior to discharge and will need to change packing daily Discussed dressings with patient and he has experience doing this himself at home with prior incidents, but may need materials or home health set up prior to discharge. No further surgery anticipated. Anesthesia: GETA Surgeon: Adolfo Sanabria DPM System Administration Advisor: staff Pathology: other (culture left leg) Condition: stable Disposition: PACU
[2018-07-26] MEDS ORDERED: Morphine Inj 4 MG/ML Vial ONE ×2 (10:46→10:57)
--- NOTE | 2018-07-26 14:41 | P.PNIM ---
Subjective Interval history: The pt was seen following his procedure. He was feeling well. 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 He understands that he needs to stay off his leg for a while. Physical Exam Vital signs: Vital Signs 07/25/18 16:00 07/25/18 20:00 07/26/18 00:00 Temperature 96.3 F L 97 F L 97.3 F L Pulse Rate 67 62 80 Respiratory Rate 18 20 20 Blood Pressure 153/89 H 171/80 H 147/101 H Pulse Oximetry 96 95 93 L 07/26/18 04:00 07/26/18 08:00 07/26/18 08:47 Temperature 96.3 F L 97.1 F L 97.1 F L Pulse Rate 76 65 65 Respiratory Rate 20 16 18 Blood Pressure 155/104 H 176/99 H 176/99 H Pulse Oximetry 94 L 96 96 07/26/18 10:41 07/26/18 11:00 07/26/18 11:05 Temperature 98 F Pulse Rate 60 64 Respiratory Rate 16 16 16 Blood Pressure 134/82 133/74 Pulse Oximetry 95 96 07/26/18 11:15 07/26/18 12:00 Temperature 96.0 F L Pulse Rate 66 75 Respiratory Rate 16 16 Blood Pressure 150/88 H 165/94 H Pulse Oximetry 97 96 Intake & Output 07/25/18 07/26/18 07/26/18 18:59 06:59 18:59 Intake Total 1350 / 1350 2920 / 2920 Output Total 900 / 900 750 / 750 Balance -900 / -900 600 / 600 2920 / 2920 Weight 93.3 kg 94.1 kg Intake: IV 1350 / 1350 2019 / 2019 NS Inj 1,000 ML @ 100 mls/hr IV 1000 / 1000 700 / 700 .CONT .Q10H [facility] Rx#:[id number] LR 1000 mL Inj 1,000 ML @ 30 700 / 700 mls/hr IV.SIG .Q24H [facility] Rx#: [id number] Zosyn 4.5 GM Premix 4.5 gm In 100 / 100 100 / 100 100 ml @ 200 mls/hr IV.SIG Q6H [facility] Rx#:[id number] Vancomycin Inj 1,000 MG In NS 250 / 250 Inj 250 ML @ 250 mls/hr IV.SIG ONCE ONE Rx#:[id number] Vancomycin Inj 1,500 MG In NS 520 / 520 Inj 500 ML @ 250 mls/hr IV.SIG Q24H [facility] Rx#:[id number] Oral 0 / 0 Anesthesia Amount 900 / 900 Output: Urine 900 / 900 750 / 750 Other: # Voids 1 Date of Last Bowel Movement 07/24/18 Weight On Admission 93 kg Narrative: GENERAL: Awake and alert, in no acute distress. SKIN: Left lower extremity is erythematous and warm to the touch. There is ecchymosis of the toes. Large area of fluctuance to the lateral side of the left lower extremity. HEAD: Atraumatic. Normocephalic. EYES: Pupils equal and round. No scleral icterus. No injection or drainage. ENT: Mucous membranes pink and moist. NECK: Trachea midline. No JVD. CARDIOVASCULAR: Regular rate and rhythm. No murmur appreciated. RESPIRATORY: No accessory muscle use. Clear to auscultation. Breath sounds equal bilaterally. GASTROINTESTINAL: Abdomen soft, non-tender, nondistended. MUSCULOSKELETAL: No clubbing. No cyanosis. Edema of the left lower extremity. Bandage in place. Pedal pulses intact. NEUROLOGICAL: Awake and alert. No obvious cranial nerve deficits. Motor grossly within normal limits. Normal speech. PSYCHIATRIC: Appropriate mood and affect; insight and judgment normal. Results - Labs CBC & Chem 7: 07/26/18 08:10 07/26/18 08:10 Laboratory Results - last 24 hr 07/25/18 07/25/18 07/26/18 17:24 22:05 05:43 CBC w Diff WBC RBC Hgb Hct MCV MCH MCHC RDW Plt Count MPV Neut % (Auto) Lymph % (Auto) [place] % (Auto) Eos % (Auto) Baso % (Auto) Neut # (Auto) Lymph # (Auto) [place] # (Auto) Eos # (Auto) Baso # (Auto) WBC Differential Differential Comment PT INR Sodium Potassium Chloride Carbon Dioxide Anion Gap BUN Creatinine Estimated GFR POC Glucose 99 84 110 Random Glucose Calcium Total Bilirubin AST ALT Alkaline Phosphatase Total Protein Albumin 07/26/18 07/26/18 07/26/18 08:10 08:10 08:10 CBC w Diff Auto diff final WBC 7.4 RBC 4.23 L Hgb 12.4 L Hct 37.7 L MCV 89.0 MCH 29.3 MCHC 33.0 RDW 12.3 Plt Count 198 MPV 9.5 Neut % (Auto) 72.0 H Lymph % (Auto) 16.9 [place] % (Auto) 7.3 Eos % (Auto) 3.3 Baso % (Auto) 0.5 Neut # (Auto) 5.4 Lymph # (Auto) 1.3 [place] # (Auto) 0.5 Eos # (Auto) 0.2 Baso # (Auto) 0.0 WBC Differential . Differential Comment . PT 20.6 H INR 2.0 Sodium 145 Potassium 3.5 Chloride 107 Carbon Dioxide 30.8 Anion Gap 7 BUN 20 H Creatinine 1.40 H Estimated GFR 52 L POC Glucose Random Glucose 107 H Calcium 8.4 L Total Bilirubin 0.4 AST 17 ALT 29 Alkaline Phosphatase 71 Total Protein 7.2 D Albumin 3.4 07/26/18 12:07 CBC w Diff WBC RBC Hgb Hct MCV MCH MCHC RDW Plt Count MPV Neut % (Auto) Lymph % (Auto) [place] % (Auto) Eos % (Auto) Baso % (Auto) Neut # (Auto) Lymph # (Auto) [place] # (Auto) Eos # (Auto) Baso # (Auto) WBC Differential Differential Comment PT INR Sodium Potassium Chloride Carbon Dioxide Anion Gap BUN Creatinine Estimated GFR POC Glucose 160 H Random Glucose Calcium Total Bilirubin AST ALT Alkaline Phosphatase Total Protein Albumin Assessment and Plan - Plan Left lower extremity abscess The pt injured his LLE about two weeks ago. He failed a course of clindamycin. CT indicative of abscess. Podiatry consult appreciated. S/p I&D 07/26. -wound care and weightbearing per podiatry. -pain control with a bowel regimen. -IV vancomycin and Zosyn. -follow culture results. Acute renal failure/ Hypokalemia Likely prerenal. -IVFs and monitor. -avoid nephrotoxins. Afib Recently diagnosed. On Coumadin. INR 2 07/26. -resume Coumadin in AM if OK with podiatry. DM Chronic. -insulin sliding scale. PPx: INR 2
[2018-07-26] MEDS: Sodium Chloride 0.45 % Inj 1,000 ML IV.CONT SCH (15:17)
[2018-07-26] MEDS: Lisinopril 5 MG Tablet PO SCH (15:19)
--- NOTE | 2018-07-26 22:16 | XR ---
EXAM DATE: 07/26/2018 10:13 PM EDT AGE/SEX: 57 years / Male INDICATIONS: Congestion. CLINICAL DATA: This is the patient's initial encounter. Patient reports that signs and symptoms have been present for 1 day and indicates a pain score of 0/10. MEDICAL/SURGICAL HISTORY: . Renal failure, acute. Congestive heart failure. Gastroesophageal re flux disease. Cellulitis. Diabetes. Hypertension. . Appendectomy. COMPARISON: [facility], CHEST 1V SINGLE AP, 05/29/2018. . FINDINGS: A single AP view of the chest demonstrates the lungs to be symmetrically aerated without evidence of mass, infiltrate or effusion. The cardiomediastinal contours are unremarkable. Osseous structures a re intact. CONCLUSION: No acute cardiopulmonary disease. Electronically signed by: Tommy Thomas MD 07/26/2018 10:15 PM EDT
[2018-07-27] MEDS: Piperacil/Tazo 4.5 GM Premix 4.5 GM/100 ML BAG IV.SIG SCH ×5 (01:08→23:59)
[2018-07-27] MEDS: Sodium Chloride 0.45 % Inj 1,000 ML IV.CONT SCH ×4 (01:22→23:52)
[2018-07-27] MEDS: Vancomycin Inj 1,500 MG in Sodium Chlor 0.9% Inj 500 ML IV.SIG SCH (05:12)
[2018-07-27] MEDS: Levothyroxine 50 MCG Tablet PO SCH (05:12)
[2018-07-27 07:05] LABS: Baso # (Auto) 0.1 th/mm3 (0.0-0.2); Baso % (Auto) 0.4 % (0.0-2.0); Eos % (Auto) 0.2 % (0.0-4.0); Hematocrit 37.1 % (39.0-51.0); Hemoglobin 12.1 gm/dL (13.0-17.0); Lymph # (Auto) 0.8 th/mm3 (1.0-4.8); Lymph % (Auto) 5.3 % (9.0-44.0); Mean Corpuscular HGB Conc 32.7 % (32.0-36.0); Mean Corpuscular Hemoglobin 29.1 pg (27.0-34.0); Mean Platelet Volume 9.5 fL (7.0-11.0); Mono # (Auto) 0.4 th/mm3 (0.0-0.9); Mono % (Auto) 2.8 % (0.0-8.0); Neut # (Auto) 13.3 th/mm3 (1.8-7.7); Neut % (Auto) 91.3 % (16.0-70.0); Platelet Count 209 th/mm3 (150-450); Red Blood Count 4.17 mil/mm3 (4.50-5.90); Red Cell Distribution Width 11.9 % (11.6-17.2); White Blood Count 14.6 th/mm3 (4.0-11.0)
[2018-07-27 07:32] LABS: Potassium 3.6 meq/L (3.5-5.1)
[2018-07-27 07:33] LABS: INR 1.9 Ratio; Prothrombin Time 19.5 sec (9.8-11.6)
[2018-07-27 07:37] LABS: Carbon Dioxide 26.1 meq/L (21.0-32.0); Magnesium 1.8 mg/dL (1.5-2.5)
[2018-07-27 07:38] LABS: Calcium 8.2 mg/dL (8.5-10.1)
[2018-07-27] MEDS: Insulin NovoLOG Aspart Correctional Sugar Inj SQ SCH ×4 (07:51→22:31)
[2018-07-27] MEDS: Carvedilol 12.5 MG Tablet PO SCH ×4 (07:51→21:12)
[2018-07-27] MEDS: Allopurinol 100 MG Tablet PO SCH ×2 (07:51→08:01)
[2018-07-27] MEDS: hydrALAZINE 50 MG Tablet PO SCH ×2 (07:52→08:01)
[2018-07-27] MEDS: Lisinopril 5 MG Tablet PO SCH ×2 (07:54→08:01)
[2018-07-27] MEDS: Senna/Docusate Sodium 8.6/50 MG Tablet PO SCH ×2 (08:01→20:34)
--- NOTE | 2018-07-27 10:28 | P.PNPOD ---
Subjective Interval history: s/p I&D left leg abscess Dr Sanabria 07/26/18 Physical Exam Vital signs: Vital Signs 07/26/18 10:41 07/26/18 11:00 07/26/18 11:05 Temperature 98 F Pulse Rate 60 64 Respiratory Rate 16 16 16 Blood Pressure 134/82 133/74 Pulse Oximetry 95 96 07/26/18 11:15 07/26/18 12:00 07/26/18 16:00 Temperature 96.0 F L 96.7 F L Pulse Rate 66 75 73 Respiratory Rate 16 16 16 Blood Pressure 150/88 H 165/94 H 169/103 H Pulse Oximetry 97 96 96 07/26/18 20:00 07/27/18 00:00 07/27/18 04:00 Temperature 96.8 F L 97.2 F L 96.7 F L Pulse Rate 82 70 70 Respiratory Rate 20 20 20 Blood Pressure 184/91 H 166/90 H 155/93 H Pulse Oximetry 94 L 96 95 07/27/18 08:00 Temperature 96.2 F L Pulse Rate 84 Respiratory Rate 16 Blood Pressure 168/98 H Pulse Oximetry 93 L Intake & Output 07/26/18 07/27/18 07/27/18 18:59 06:59 18:59 Intake Total 4140 / 4140 1340 / 1340 1215 / 1215 Output Total 1100 / 1100 900 / 900 Balance 3040 / 3040 440 / 440 1215 / 1215 Weight 94.3 kg Intake: IV 2520 / 2520 1100 / 1100 1215 / 1215 NS Inj 1,000 ML @ 100 mls/hr IV 700 / 700 .CONT .Q10H [facility] Rx#:[id number] 1/2 Normal Saline Inj 1,000 ML 1000 / 1000 600 / 600 @ 100 mls/hr IV.CONT .Q10H [facility] Rx#:[id number] LR 1000 mL Inj 1,000 ML @ 30 1000 / 1000 mls/hr IV.SIG .Q24H [facility] Rx#: [id number] Zosyn 4.5 GM Premix 4.5 gm In 300 / 300 100 / 100 100 / 100 100 ml @ 200 mls/hr IV.SIG Q6H [facility] Rx#:[id number] Vancomycin Inj 1,500 MG In NS 520 / 520 515 / 515 Inj 500 ML @ 250 mls/hr IV.SIG Q24H [facility] Rx#:[id number] Oral 720 / 720 240 / 240 Anesthesia Amount 900 / 900 Output: Urine 1100 / 1100 900 / 900 Other: Date of Last Bowel Movement 07/27/18 # Bowel Movements 0 Narrative: Left lower leg with sutures intact and packing intact Reduced erythema/edema. No purulence noted. Minimal pain Medications and Allergies Active Medications: Active Medications Allopurinol (Zyloprim) 100 mg PO DAILY [facility] Last Admin: 07/27/18 08:01 Dose: Not Given Carvedilol (Coreg) 25 mg PO BID [facility] Last Admin: 07/27/18 08:01 Dose: Not Given Dextrose (D50w Vial) 50 ml IV.PUSH UNSCH PRN PRN Reason: PER HYPOGLYCEMIA PROTOCOL Glucagon (Glucagon Inj) 1 mg OTHER PRN PRN PRN Reason: for Hypoglycemia Protocol Hydralazine HCl (Apresoline) 50 mg PO DAILY [facility] Last Admin: 07/27/18 08:01 Dose: Not Given Piperacillin/Tazobactam/Dextrose (Zosyn 4.5 Gm Premix) 4.5 gm in 100 mls @ 200 mls/hr IV.SIG Q6H [facility] Last Infusion: 07/27/18 07:01 Dose: Infused Vancomycin HCl 1,500 mg/ (Sodium Chloride) 515 mls @ 250 mls/hr IV.SIG Q24H [facility] Last Infusion: 07/27/18 08:02 Dose: Infused Sodium Chloride (1/2 Normal Saline Inj) 1,000 mls @ 100 mls/hr IV.CONT .Q10H [facility] Last Infusion: 07/27/18 10:12 Dose: 100 mls/hr Insulin Aspart (Novolog Insulin Correctional Sugar Inj) 0 unit SQ ACHS [facility]; Protocol Last Admin: 07/27/18 07:51 Dose: 1 unit Levothyroxine Sodium (Synthroid) 75 mcg PO DAILY@0600 [facility] Last Admin: 07/27/18 05:12 Dose: 75 mcg Lisinopril (Prinivil) 2.5 mg PO DAILY [facility] Last Admin: 07/27/18 08:01 Dose: Not Given Miscellaneous Information ([facility] [facility] Ordered Lab Info) 0 each OTHER ONCE ONE Stop: 07/29/18 05:46 Miscellaneous Information ([facility] Nursing Information) 1 each OTHER UNSCH PRN PRN Reason: SEE LABEL COMMENTS Stop: 07/27/18 12:14 Oxycodone HCl (Roxicodone) 5 mg PO Q4H PRN PRN Reason: pain 3-10 Pharmacy Profile Note (Vancomycin Consult Pharmacy) 1 each OTHER UNSCH PRN PRN Reason: Pharmacy to dose Pravastatin Sodium (Pravachol) 80 mg PO [facility] Last Admin: 07/26/18 20:51 Dose: 80 mg Senna/Docusate Sodium ([place]-Colace) 1 tab PO BID [facility] Last Admin: 07/27/18 08:01 Dose: Not Given Allergies Allergy/AdvReac Type Severity Reaction Status Date / Time acetaminophen Allergy Hives Verified 07/25/18 08:11 [From Coricidin] chlorpheniramine Allergy Hives Verified 07/25/18 08:11 [From Coricidin] phenylpropanolamine Allergy Hives Verified 07/25/18 08:11 [From Coricidin] *MDRO Multi-Drug Resistant AdvReac Unknown Rash, Uncoded 07/25/18 08:11 Organism Generalized Home Medications Medication Instructions Recorded Confirmed Type allopurinol [Zyloprim] 100 mg PO DAILY 05/29/18 07/25/18 History carvedilol [Coreg] 25 mg PO BID 05/29/18 07/25/18 History glipizide 10 mg PO DAILY 05/29/18 07/25/18 History hydralazine 50 mg PO DAILY 05/29/18 07/25/18 History levothyroxine [Synthroid] 75 mcg PO DAILY 05/29/18 07/25/18 History metformin 1,000 mg PO DAILY 05/29/18 07/25/18 History simvastatin 40 mg PO HS 05/29/18 07/25/18 History warfarin 5 mg PO DAILY 07/13/18 07/25/18 History lisinopril 2.5 mg PO DAILY 07/26/18 07/26/18 History Results - Labs CBC & Chem 7: 07/27/18 06:33 07/27/18 06:33 Laboratory Results - last 24 hr 07/26/18 07/26/18 07/26/18 12:07 16:41 20:53 CBC w Diff WBC RBC Hgb Hct MCV MCH MCHC RDW Plt Count MPV Neut % (Auto) Lymph % (Auto) [place] % (Auto) Eos % (Auto) Baso % (Auto) Neut # (Auto) Lymph # (Auto) [place] # (Auto) Eos # (Auto) Baso # (Auto) WBC Differential Differential Comment PT INR Sodium Potassium Chloride Carbon Dioxide Anion Gap BUN Creatinine Estimated GFR POC Glucose 160 H 169 H 254 H Random Glucose Calcium Magnesium 07/27/18 07/27/18 07/27/18 03:22 06:33 06:33 CBC w Diff Auto diff final WBC 14.6 H D RBC 4.17 L Hgb 12.1 L Hct 37.1 L MCV 89.0 MCH 29.1 MCHC 32.7 RDW 11.9 Plt Count 209 MPV 9.5 Neut % (Auto) 91.3 H Lymph % (Auto) 5.3 L [place] % (Auto) 2.8 Eos % (Auto) 0.2 Baso % (Auto) 0.4 Neut # (Auto) 13.3 H Lymph # (Auto) 0.8 L [place] # (Auto) 0.4 Eos # (Auto) 0.0 Baso # (Auto) 0.1 WBC Differential . Differential Comment . PT INR Sodium 141 Potassium 3.6 Chloride 105 Carbon Dioxide 26.1 Anion Gap 10 BUN 22 H Creatinine 1.50 H Estimated GFR 48 L POC Glucose 188 H Random Glucose 183 H Calcium 8.2 L Magnesium 1.8 07/27/18 07/27/18 06:33 07:29 CBC w Diff WBC RBC Hgb Hct MCV MCH MCHC RDW Plt Count MPV Neut % (Auto) Lymph % (Auto) [place] % (Auto) Eos % (Auto) Baso % (Auto) Neut # (Auto) Lymph # (Auto) [place] # (Auto) Eos # (Auto) Baso # (Auto) WBC Differential Differential Comment PT 19.5 H INR 1.9 Sodium Potassium Chloride Carbon Dioxide Anion Gap BUN Creatinine Estimated GFR POC Glucose 177 H Random Glucose Calcium Magnesium Microbiology 07/26/18 10:23 Abscess - Leg Gram Stain - Final - Imaging Impressions Chest X-Ray 07/26/18 00:00 CONCLUSION: No acute cardiopulmonary disease. Assessment and Plan - Assessment (1) Cellulitis and abscess of left lower extremity Code(s): L03.116 - Cellulitis of left lower limb; L02.416 - Cutaneous abscess of left lower limb Status: Acute Plan: s/p I&D left leg abscess 07/26/18 Dr Sanabria Continue daily packing at home with dry sterile dressing Patient will need follow up at wound care center in 2 weeks due to not taking patient insurance in office and he will incur charges payable prior to being seen No further surgical intervention planned Recommend discharge when culture results are back
[2018-07-27] MEDS ORDERED: Warfarin Consult Pharmacy OTHER PRN (13:21)
--- NOTE | 2018-07-27 13:25 | P.PNIM ---
Subjective Interval history: The pt was resting comfortably in bed. He was wondering when he would go home. Pain is controlled. Walked with physical therapy. Physical Exam Vital signs: Vital Signs 07/26/18 16:00 07/26/18 20:00 07/27/18 00:00 Temperature 96.7 F L 96.8 F L 97.2 F L Pulse Rate 73 82 70 Respiratory Rate 16 20 20 Blood Pressure 169/103 H 184/91 H 166/90 H Pulse Oximetry 96 94 L 96 07/27/18 04:00 07/27/18 08:00 Temperature 96.7 F L 96.2 F L Pulse Rate 70 84 Respiratory Rate 20 16 Blood Pressure 155/93 H 168/98 H Pulse Oximetry 95 93 L Intake & Output 07/26/18 07/27/18 07/27/18 18:59 06:59 18:59 Intake Total 4140 / 4140 1340 / 1340 1215 / 1215 Output Total 1100 / 1100 900 / 900 Balance 3040 / 3040 440 / 440 1215 / 1215 Weight 94.3 kg Intake: IV 2520 / 2520 1100 / 1100 1215 / 1215 NS Inj 1,000 ML @ 100 mls/hr IV 700 / 700 .CONT .Q10H [facility] Rx#:[id number] 1/2 Normal Saline Inj 1,000 ML 1000 / 1000 600 / 600 @ 100 mls/hr IV.CONT .Q10H [facility] Rx#:[id number] LR 1000 mL Inj 1,000 ML @ 30 1000 / 1000 mls/hr IV.SIG .Q24H [facility] Rx#: [id number] Zosyn 4.5 GM Premix 4.5 gm In 300 / 300 100 / 100 100 / 100 100 ml @ 200 mls/hr IV.SIG Q6H [facility] Rx#:[id number] Vancomycin Inj 1,500 MG In NS 520 / 520 515 / 515 Inj 500 ML @ 250 mls/hr IV.SIG Q24H [facility] Rx#:[id number] Oral 720 / 720 240 / 240 Anesthesia Amount 900 / 900 Output: Urine 1100 / 1100 900 / 900 Other: Date of Last Bowel Movement 07/27/18 # Bowel Movements 0 Narrative: GENERAL: Awake and alert, in no acute distress. SKIN: Left lower extremity is erythematous and warm to the touch. There is ecchymosis of the toes. Large area of fluctuance to the lateral side of the left lower extremity. Dressing in place. HEAD: Atraumatic. Normocephalic. EYES: Pupils equal and round. No scleral icterus. No injection or drainage. ENT: Mucous membranes pink and moist. NECK: Trachea midline. No JVD. CARDIOVASCULAR: Regular rate and rhythm. No murmur appreciated. RESPIRATORY: No accessory muscle use. Clear to auscultation. Breath sounds equal bilaterally. GASTROINTESTINAL: Abdomen soft, non-tender, nondistended. MUSCULOSKELETAL: No clubbing. No cyanosis. Edema of the left lower extremity. Bandage in place. Pedal pulses intact. NEUROLOGICAL: Awake and alert. No obvious cranial nerve deficits. Motor grossly within normal limits. Normal speech. PSYCHIATRIC: Appropriate mood and affect; insight and judgment normal. Results - Labs CBC & Chem 7: 07/27/18 06:33 07/27/18 06:33 Laboratory Results - last 24 hr 07/26/18 07/26/18 07/27/18 16:41 20:53 03:22 CBC w Diff WBC RBC Hgb Hct MCV MCH MCHC RDW Plt Count MPV Neut % (Auto) Lymph % (Auto) [place] % (Auto) Eos % (Auto) Baso % (Auto) Neut # (Auto) Lymph # (Auto) [place] # (Auto) Eos # (Auto) Baso # (Auto) WBC Differential Differential Comment PT INR Sodium Potassium Chloride Carbon Dioxide Anion Gap BUN Creatinine Estimated GFR POC Glucose 169 H 254 H 188 H Random Glucose Calcium Magnesium 07/27/18 07/27/18 07/27/18 06:33 06:33 06:33 CBC w Diff Auto diff final WBC 14.6 H D RBC 4.17 L Hgb 12.1 L Hct 37.1 L MCV 89.0 MCH 29.1 MCHC 32.7 RDW 11.9 Plt Count 209 MPV 9.5 Neut % (Auto) 91.3 H Lymph % (Auto) 5.3 L [place] % (Auto) 2.8 Eos % (Auto) 0.2 Baso % (Auto) 0.4 Neut # (Auto) 13.3 H Lymph # (Auto) 0.8 L [place] # (Auto) 0.4 Eos # (Auto) 0.0 Baso # (Auto) 0.1 WBC Differential . Differential Comment . PT 19.5 H INR 1.9 Sodium 141 Potassium 3.6 Chloride 105 Carbon Dioxide 26.1 Anion Gap 10 BUN 22 H Creatinine 1.50 H Estimated GFR 48 L POC Glucose Random Glucose 183 H Calcium 8.2 L Magnesium 1.8 07/27/18 07/27/18 07:29 11:26 CBC w Diff WBC RBC Hgb Hct MCV MCH MCHC RDW Plt Count MPV Neut % (Auto) Lymph % (Auto) [place] % (Auto) Eos % (Auto) Baso % (Auto) Neut # (Auto) Lymph # (Auto) [place] # (Auto) Eos # (Auto) Baso # (Auto) WBC Differential Differential Comment PT INR Sodium Potassium Chloride Carbon Dioxide Anion Gap BUN Creatinine Estimated GFR POC Glucose 177 H 200 H Random Glucose Calcium Magnesium Microbiology 07/26/18 10:23 Abscess - Leg Gram Stain - Final 07/26/18 10:23 Abscess - Leg Wound Culture - Preliminary No growth in 24 hours - Imaging Impressions Chest X-Ray 07/26/18 00:00 CONCLUSION: No acute cardiopulmonary disease. Assessment and Plan - Plan Left lower extremity abscess The pt injured his LLE about two weeks ago. He failed a course of clindamycin. CT indicative of abscess. Podiatry consult appreciated. S/p I&D 07/26. -wound care and weightbearing per podiatry. -pain control with a bowel regimen. -IV vancomycin and Zosyn. Change to PO at discharge. -follow culture results. NGTD. Acute renal failure/ Hypokalemia Likely prerenal. -IVFs and monitor. -avoid nephrotoxins. Afib Recently diagnosed. On Coumadin. INR 1.9 07/27. -resume Coumadin. DM Chronic. -insulin sliding scale. PPx: Coumadin
[2018-07-27] MEDS ORDERED: hydrALAZINE 50 MG Tablet PO ONE (21:09)
[2018-07-28] MEDS ORDERED: hydrALAZINE 50 MG Tablet PO ONE (05:19)
[2018-07-28] MEDS: Levothyroxine 50 MCG Tablet PO SCH (05:33)
[2018-07-28] MEDS: Piperacil/Tazo 4.5 GM Premix 4.5 GM/100 ML BAG IV.SIG SCH (05:35)
[2018-07-28] MEDS: Vancomycin Inj 1,500 MG in Sodium Chlor 0.9% Inj 500 ML IV.SIG SCH (06:26)
[2018-07-28 06:57] LABS: Baso # (Auto) 0.1 th/mm3 (0.0-0.2); Baso % (Auto) 0.5 % (0.0-2.0); Eos # (Auto) 0.1 th/mm3 (0.0-0.4); Eos % (Auto) 0.5 % (0.0-4.0); Hematocrit 37.7 % (39.0-51.0); Hemoglobin 12.1 gm/dL (13.0-17.0); Lymph # (Auto) 1.9 th/mm3 (1.0-4.8); Lymph % (Auto) 18.4 % (9.0-44.0); Mean Corpuscular HGB Conc 32.1 % (32.0-36.0); Mean Corpuscular Hemoglobin 28.9 pg (27.0-34.0); Mean Platelet Volume 9.6 fL (7.0-11.0); Mono # (Auto) 0.6 th/mm3 (0.0-0.9); Neut # (Auto) 7.7 th/mm3 (1.8-7.7); Neut % (Auto) 74.6 % (16.0-70.0); Platelet Count 198 th/mm3 (150-450); Red Blood Count 4.18 mil/mm3 (4.50-5.90); Red Cell Distribution Width 12.4 % (11.6-17.2); White Blood Count 10.4 th/mm3 (4.0-11.0)
[2018-07-28 07:10] LABS: Potassium 3.5 meq/L (3.5-5.1)
[2018-07-28 07:12] LABS: Calcium 8.1 mg/dL (8.5-10.1)
[2018-07-28 07:13] LABS: Carbon Dioxide 29.7 meq/L (21.0-32.0); INR 1.6 Ratio; Magnesium 2.1 mg/dL (1.5-2.5); Prothrombin Time 16.6 sec (9.8-11.6)
[2018-07-28] MEDS: Insulin NovoLOG Aspart Correctional Sugar Inj SQ SCH (09:41)
[2018-07-28] MEDS: Sodium Chloride 0.45 % Inj 1,000 ML IV.CONT SCH (09:41)
[2018-07-28] MEDS: Carvedilol 12.5 MG Tablet PO SCH (09:43)
[2018-07-28] MEDS: Senna/Docusate Sodium 8.6/50 MG Tablet PO SCH (09:43)
[2018-07-28] MEDS: hydrALAZINE 50 MG Tablet PO SCH (09:43)
[2018-07-28] MEDS: Allopurinol 100 MG Tablet PO SCH (09:48)
[2018-07-28] MEDS ORDERED: Lisinopril 10 MG Tablet PO SCH (10:00)
[2018-07-28] MEDS ORDERED: amLODIPine 5 MG Tablet PO SCH (13:00)
--- NOTE | 2018-07-28 13:31 | P.DS ---
Date of admission: 07/25/18 11:16 Primary care physician: Noah Mercado MD Anticipated date of discharge: 07/28/18 Brief History from admission: The patient is a 57 year old male with a recent diagnosis of A fib on Coumadin who is presenting to the hospital with a worsening leg infection. The patient says that two weeks ago he came to the ED for swelling and pain in his left leg. 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 The patient was prescribed clindamycin and sent home. He said that gradually the pain in the LLE went from a 9/10 to a 5/10. He was still concerned about the amount of swelling so he thought he would come to the ED and have it checked out again. The patient denies any fever. He has been tolerating a diet. He has been sleeping well. He is able to bear weight on the LLE. He denies seeing any drainage from the extremity. Patient update on day of discharge: The patient was feeling well. He was hoping to go home today. He says his blood pressure has been up. He says it runs better at home. He said he wants to follow-up with his cardiac technician. He says his pain is controlled. DS: Diagnosis - Discharge Diagnosis (1) Cellulitis and abscess of left lower extremity Status: Acute (2) Hematoma of left lower extremity Status: Acute DS: Medications - Discharge Medications Prescriptions: doxycycline hyclate 100 mg PO BID #14 cap hydralazine 50 mg PO TID #90 tab lisinopril 10 mg PO DAILY #30 tab oxycodone 5 mg PO Q6H PRN #12 tab PRN Reason: pain 3-10 DS: Summary Hospital Course: Left lower extremity abscess The pt injured his LLE about two weeks prior to admission. He failed a course of clindamycin. CT indicative of abscess/hematoma. Podiatry was consulted. S/p I &D 07/26. The pt received pain control with a bowel regimen. He was continued on IV vancomycin and Zosyn. Cultures with no growth. The pt wanted to be discharged prior to final culture results being available so antibiotics will be changed to PO doxycycline and we will contact the pt if the results of his wound culture changes. He will be given oxycodone for pain (E-FORCSE was checked ). He will follow up at the wound care clinic. Acute on chronic renal failure/ Hypokalemia Stable. S/p repletion of potassium. Afib Recently diagnosed. On Coumadin, which was held prior to I&D. Coumadin was resumed on 07/27. He will follow up with his cardiac technician. HTN Blood pressure was elevated in the hospital. Lisinopril and hydralazine were increased. He will follow up with his cardiac technician. DM Chronic. He was placed on an insulin sliding scale. He will resume his home regimen. - Time Spent with Patient Total time spent providing and/or coordinating discharge services: Greater than 30 minutes - Quality: VTE Deep Vein Thrombosis/Pulmonary Embolism Present on Admission: No Exam Vital signs: Vital Signs 07/27/18 16:00 07/27/18 20:00 07/28/18 00:00 Temperature 97.1 F L 97.1 F L 97.5 F L Pulse Rate 57 L 47 L 61 Respiratory Rate 16 20 18 Blood Pressure 184/92 H 178/91 H 171/86 H Pulse Oximetry 96 96 95 07/28/18 04:00 07/28/18 08:00 Temperature 97.1 F L Pulse Rate 50 L 97 H Respiratory Rate 20 Blood Pressure 184/99 H 188/100 H Pulse Oximetry 96 Intake & Output 07/27/18 07/28/18 07/28/18 18:59 06:59 18:59 Intake Total 2775 / 2775 2080 / 2080 240 / 240 Output Total 1100 / 1100 600 / 600 Balance 1675 / 1675 1480 / 1480 240 / 240 Intake: IV 1815 / 1815 1100 / 1100 1/2 Normal Saline Inj 1,000 ML 1000 / 1000 1000 / 1000 @ 100 mls/hr IV.CONT .Q10H JIMBO Rx#:[id number] Zosyn 4.5 GM Premix 4.5 gm In 300 / 300 100 / 100 100 ml @ 200 mls/hr IV.SIG Q6H JIMBO Rx#:[id number] Vancomycin Inj 1,500 MG In NS 515 / 515 Inj 500 ML @ 250 mls/hr IV.SIG Q24H JIMBO Rx#:[id number] Oral 960 / 960 980 / 980 240 / 240 Output: Urine 1100 / 1100 600 / 600 Other: Date of Last Bowel Movement 07/27/18 # Bowel Movements 0 Narrative: GENERAL: Awake and alert, in no acute distress. SKIN: Left lower extremity is erythematous and warm to the touch. There is ecchymosis of the toes. Large area of fluctuance to the lateral side of the left lower extremity. Dressing in place. HEAD: Atraumatic. Normocephalic. EYES: Pupils equal and round. No scleral icterus. No injection or drainage. ENT: Mucous membranes pink and moist. NECK: Trachea midline. No JVD. CARDIOVASCULAR: Regular rate and rhythm. No murmur appreciated. RESPIRATORY: No accessory muscle use. Clear to auscultation. Breath sounds equal bilaterally. GASTROINTESTINAL: Abdomen soft, non-tender, nondistended. MUSCULOSKELETAL: No clubbing. No cyanosis. Edema of the left lower extremity. Bandage in place. Pedal pulses intact. NEUROLOGICAL: Awake and alert. No obvious cranial nerve deficits. Motor grossly within normal limits. Normal speech. PSYCHIATRIC: Appropriate mood and affect; insight and judgment normal. Results Procedures completed during hospitalization: See hospital course Labs on day of discharge: Labs from last 24 hours 07/28/18 07/28/18 07/28/18 06:31 06:25 06:25 CBC w Diff Auto diff final WBC 10.4 RBC 4.18 L Hgb 12.1 L Hct 37.7 L MCV 90.0 MCH 28.9 MCHC 32.1 RDW 12.4 Plt Count 198 MPV 9.6 Neut % (Auto) 74.6 H Lymph % (Auto) 18.4 [place] % (Auto) 6.0 Eos % (Auto) 0.5 Baso % (Auto) 0.5 Neut # (Auto) 7.7 Lymph # (Auto) 1.9 [place] # (Auto) 0.6 Eos # (Auto) 0.1 Baso # (Auto) 0.1 WBC Differential . Differential Comment . PT INR Sodium 142 Potassium 3.5 Chloride 106 Carbon Dioxide 29.7 Anion Gap 6 BUN 17 Creatinine 1.40 H Estimated GFR 52 L POC Glucose 123 H Random Glucose 121 H Calcium 8.1 L Magnesium 2.1 07/28/18 07/27/18 07/27/18 06:25 22:05 16:57 CBC w Diff WBC RBC Hgb Hct MCV MCH MCHC RDW Plt Count MPV Neut % (Auto) Lymph % (Auto) [place] % (Auto) Eos % (Auto) Baso % (Auto) Neut # (Auto) Lymph # (Auto) [place] # (Auto) Eos # (Auto) Baso # (Auto) WBC Differential Differential Comment PT 16.6 H INR 1.6 Sodium Potassium Chloride Carbon Dioxide Anion Gap BUN Creatinine Estimated GFR POC Glucose 132 H 113 H Random Glucose Calcium Magnesium Preliminary micro results at discharge 07/26/18 10:23 Wound Culture - Preliminary Abscess - Leg No growth in 48 hours - Impressions ITS Impressions Lower Extremity CT 07/25/18 08:30 CONCLUSION: 1. Soft tissue fluid collection presumed abscess with some deep involvement lateral side of the leg just above the ankle. 2. Ultrasound could be used to aspirate. Chest X-Ray 07/26/18 00:00 CONCLUSION: No acute cardiopulmonary disease. Discharge Plan - Discharge Disposition Patient Disposition: 01 Discharge Home - Discharge Condition Condition: Stable - Discharge Order Discharge Orders: Discharge Order (Routine); Ordered 07/28/18 Ordered By: Tommy Forde - Discharge Details Anticipated Discharge Date: 07/28/18 Discharge Comment: Discharge if blood pressure improves. Will need to follow at wound care center. - Physicians Team Primary Care Provider: Noah Mercado Attending Provider: Tommy Forde Other Providers: Adolfo Sanabria DPM
[2018-07-28] MEDS ORDERED: hydrALAZINE 50 MG Tablet PO SCH (14:00)
[2018-07-29] MEDS ORDERED: VANCOMYCIN TROUGH OTHER ONE (05:45)
--- NOTE | 2018-07-30 10:04 | MP ---
cc: Adolfo Sanabria DPM DATE OF OPERATION: 07/26/2018 INDICATIONS: The patient presented with redness and swelling to the lateral aspect of the left ankle that was worsening. He was found to have findings consistent with an abscess to the left lower leg just proximal to the ankle. He is also on blood thinners. I discussed with him the risks, benefits, and potential complications of moving forward with surgery, that he would benefit from incision and drainage of abscess. He agreed to move forward with surgery. DESCRIPTION OF PROCEDURE: He was seen in preop holding by myself, nursing staff, and anesthesia, where the correct patient, side, and site were all confirmed to be correct in the left lower leg. He was then taken to the surgical suite in supine position. The left lower leg was prepped and draped in normal sterile fashion. There was noted to be a fluctuant subcutaneous area just proximal to the lateral malleolus. An incision was made approximately 3 cm in length and a large cavernous area was noted with a hematoma with a little bit of purulence expressed and the area was irrigated thoroughly with 3 liters of normal saline plus irrigant followed by partial closure with 2-0 nylon and packing with 1/4-inch iodoform gauze. A dressing consisting of 4 x 4's, ABD x2 cast padding, Adolfo was applied to the left lower leg. The patient tolerated anesthesia and procedure well without complications and was taken back to PACU with vital signs stable and vascular status intact to the remainder of the left lower extremity. He will be weightbearing as tolerated left lower extremity and await cultures so appropriate prescription of antibiotics can be recommended. The patient also does have experience with himself with doing packing for other areas and other injuries and either needs to be trained to do this himself daily or may need home health set up given prior to discharge. SHORT OPERATIVE NOTE SURGEON: Adolfo Sanabria DPM CHARGE NURSE: Staff. PREOPERATIVE DIAGNOSES: 1. Hematoma, left lower extremity. 2. Abscess, left lower extremity. POSTOPERATIVE DIAGNOSES: 1. Hematoma, left lower extremity. 2. Abscess, left lower extremity. PROCEDURE PERFORMED: Incision and drainage, left leg hematoma and abscess. PATHOLOGY: Culture left leg. TYPE OF ANESTHESIA: General endotracheal anesthesia. ESTIMATED BLOOD LOSS: Minimal. No tourniquet utilized. CONDITION: Stable to PACU. DISPOSITION: Weightbearing as tolerated left lower extremity. Await cultures and will need followup at the [facility] and to perform packing changes daily until healing has occurred. ELIAS Lobo , 08:24 AM , 08:30 AM
== END 2018-07-28 15:00 | disposition home or self-care (01) ==
LOC: PHED 08:00 → PHEDA 11:16 → PH3 11:50
PROVIDERS: ADMIT Hospitalist; ATTEND Hospitalist